=== PATIENT | male | born 1955 | race Caucasian/White ===

== ENCOUNTER 2019-06-23 10:53 | Observation (INO) | payer OTHER ==
[~2019-06-23] VITALS: Ht 177.8 cm; Wt 93.1 kg
[2019-06-23 11:30] VITALS: BP 128/75
[2019-06-23] MEDS ORDERED: OMEG1CAP23 PO (11:39)
[2019-06-23] MEDS ORDERED: AMLO-150 PO (11:39)
[2019-06-23] MEDS ORDERED: ASPI-650 PO (11:39)
[2019-06-23] MEDS ORDERED: MULT-751 PO (11:39)
[2019-06-23] MEDS ORDERED: MIDAZOLAM 1 MG/ML, 5ML ONE (13:23)
[2019-06-23] MEDS ORDERED: FENTANYL PF 100 MCG/2ML ONE (13:23)
[2019-06-23] MEDS ORDERED: HEPARIN 1,000 UNITS/ML, 10ML ONE (13:24)
[2019-06-23] MEDS ORDERED: BIVALIRUDIN 250 MG ONE (13:24)
[2019-06-23] MEDS ORDERED: TICAGRELOR 90 MG TABLET ONE (13:24)
[2019-06-23] MEDS ORDERED: VERAPAMIL 2.5 MG/ML, 2ML ONE (13:24)
[2019-06-23] MEDS ORDERED: LIDOCAINE-MPF 1%, 5ML ONE (13:24)
[2019-06-23] MEDS ORDERED: SODIUM CHLORIDE 0.9% 1,000 ML IV SCH (14:54)
[2019-06-23] MEDS ORDERED: ACETAMINOPHEN 325 MG TABLET PO PRN (15:00)
[2019-06-23] MEDS ORDERED: BISACODYL 5 MG EC TABLET PO PRN (15:00)
[2019-06-23] MEDS ORDERED: ZOLPIDEM 5MG TABLET PO PRN (15:00)
[2019-06-23 17:42] VITALS: BP 122/76
[2019-06-23] MEDS: METOPROLOL TARTRATE 25 MG TABLET PO SCH (17:45)
[2019-06-23 19:13] VITALS: BP 121/73
[2019-06-23] MEDS: TICAGRELOR 90 MG TABLET PO SCH (20:38)
[2019-06-23] MEDS ORDERED: ATORVASTATIN 10 MG TABLET PO SCH (21:00)
[2019-06-24 01:04] VITALS: BP 111/68
[2019-06-24 05:01] LABS: ANION GAP 7 mmol/L (5-15); CALCIUM 8.6 mg/dL (8.5-10.1); CHLORIDE 110 mmol/L (98-107); CREATININE 0.99 mg/dL (0.7-1.3)
[2019-06-24] MEDS: METOPROLOL TARTRATE 25 MG TABLET PO SCH (05:44)
[2019-06-24 07:50] VITALS: BP 115/78
[2019-06-24] MEDS: TICAGRELOR 90 MG TABLET PO SCH (08:01)
[2019-06-24] MEDS ORDERED: ASPI81TA45 PO (08:28)
[2019-06-24] MEDS ORDERED: TICA90TA PO (08:28)
[2019-06-24] MEDS ORDERED: METO25TA2 PO (08:28)
[2019-06-24] MEDS ORDERED: OMEGA-3/FISH OIL CAPSULE PO SCH (09:00)
[2019-06-24] MEDS ORDERED: ASPIRIN 81 MG TABLET EC PO SCH (09:00)
[2019-06-24] MEDS ORDERED: MULTIVITAMINS/MINERALS TABLET PO SCH (09:00)
[2019-06-24] MEDS ORDERED: AMLODIPINE 5 MG TABLET PO SCH (09:00)
== END 2019-06-24 10:15 | disposition home or self-care (01) ==
LOC: CACL 10:53 → ORIP 14:54 → 5SO 15:33 → DCLOUNGE 06-24 10:09
PROVIDERS: ADMIT Internal Medicine Cardiovascular Disease; ATTEND Internal Medicine Cardiovascular Disease
DX: R07.89 Other chest pain (principal); I10 Essential (primary) hypertension; E78.2 Mixed hyperlipidemia; R73.03 Prediabetes; I25.10 Atherosclerotic heart disease of native coronary artery without angina pectoris; E78.5 Hyperlipidemia, unspecified; F17.210 Nicotine dependence, cigarettes, uncomplicated; Z86.73 Personal history of transient ischemic attack (TIA), and cerebral infarction without residual deficits
CPT/HCPCS: 36415; 80048; 85014; 85018; 93458; 99156; 99157; C1725; C1769; C1874; C1887; C1894; C9600; G0378; J0583; J1644; J2250; J3010; Q9967

== ENCOUNTER → 2020-01-31 | Outpatient (CLI) | payer OTHER ==
[~2020-01-31] MED LIST: AMLO-150 PO; ASPI-650 PO; ASPI81TA45 PO; METO25TA2 PO; MULT-751 PO; OMEG1CAP23 PO; REGADENOSON 0.4 MG/5 ML SYRINGE ONE; TICA90TA PO
== END | disposition home or self-care (01) ==
LOC: CFH 08:07
PROVIDERS: ATTEND Internal Medicine Cardiovascular Disease
DX: I25.10 Atherosclerotic heart disease of native coronary artery without angina pectoris (principal); I10 Essential (primary) hypertension
CPT/HCPCS: 78452; 93017; A9502; J2785